=== PATIENT | female | born 1970 | race Caucasian/White ===

== ENCOUNTER 2020-06-16 18:35 | Emergency (ER) | payer OTHER ==
[2020-06-16] MEDS ORDERED: DIPHENHYDRAMINE HCL 50 MG/ML VIAL IV ONE (18:54)
[2020-06-16] MEDS ORDERED: NORMAL SALINE 1000 ML 1,000 ML IV ONE (18:54)
[2020-06-16] MEDS ORDERED: FAMOTIDINE INJ/PF 20 MG/2 ML SDV IV ONE (18:54)
[2020-06-16] MEDS ORDERED: METHYLPREDNISOLONE INJ 125 MG/2 ML SDV IV ONE (18:54)
--- NOTE | 2020-06-16 18:56 | ER Document Report ---
ED Medical Screen (RME) - General Chief Complaint: Chest Pain Stated Complaint: INSECT BITE Time Seen by Provider: 06/16/20 18:49 Primary Care Provider: MAYA AGARWAL MD [Primary Care Provider] - Follow up as needed Information source: Patient Notes: Patient states she was bit by an insect around 130 this afternoon. Patient complains of redness and swelling to this area. Patient states that she started to develop difficulty swallowing and chest tightness. Patient is uncertain if this may be anxiety or due to her allergic reaction. I have greeted and performed a rapid initial assessment of this patient. A comprehensive ED assessment and evaluation of the patient, analysis of test results and completion of the medical decision making process will be conducted by additional ED providers. - Related Data Allergies/Adverse Reactions: No Known Allergies Allergy (Verified 06/16/20 18:54) Past Medical History - Social History Frequency of alcohol use: Occasional Drug Abuse: None Physical Exam - Vital signs Vitals: Temp Pulse Resp BP Pulse Ox 99.2 F 116 H 20 157/87 H 95 06/16/20 18:38 06/16/20 18:38 06/16/20 18:38 06/16/20 18:38 06/16/20 18:38 - General General appearance: Alert, Anxious Notes: Patient able to manage oral secretions, no angioedema - Cardiovascular Rhythm: Tachycardia Heart sounds: S1 appreciated, S2 appreciated Course - Re-evaluation Re-evalutation: 06/16/20 18:55 Charge nurse advised of patient status and need for room - Vital Signs Vital signs: Temp Pulse Resp BP Pulse Ox 99.2 F 116 H 20 157/87 H 95 06/16/20 18:38 06/16/20 18:38 06/16/20 18:38 06/16/20 18:38 06/16/20 18:38 Doctor's Discharge - Discharge Referrals: MAYA AGARWAL MD [Primary Care Provider] - Follow up as needed
[2020-06-16] MEDS ORDERED: HYDROMORPHONE HCL INJ/PF 2 MG/ML AMPULE IV ONE (19:00)
[2020-06-16] MEDS ORDERED: EPINEPHRINE INJ/PF 1 MG/1 ML AMPULE ONE (19:04)
[2020-06-16] MEDS ORDERED: EPINEPHRINE INJ/PF 1 MG/1 ML AMPULE SUBCUT ONE (19:04)
--- NOTE | 2020-06-16 19:12 | ER Document Report ---
ED Skin Rash/Insect Bite/Abscs - General Chief Complaint: Chest Pain Stated Complaint: INSECT BITE Time Seen by Provider: 06/16/20 18:49 Primary Care Provider: KAYLYN DUKE DO [NO LOCAL MD] - Follow up as needed Mode of Arrival: Ambulatory Information source: Patient, [facility] Records Notes: This 49-year-old female patient comes emergency room complaining of acute allergic reaction. She reports getting bitten or stung on her left knee about 1:30 PM. Area has turned red and swollen. About 2 PM she began developing hives all over her body. She has diffuse itching. She states that seems to be improving somewhat, but now she feels a lump in her throat, with some burning discomfort on swallowing that extends into her substernal chest region. She does notice that turning her head left and right tends to exacerbate the discomfort she feels in her anterior neck and throat region. - Related Data Allergies/Adverse Reactions: No Known Allergies Allergy (Verified 06/16/20 18:54) Past Medical History - General Information source: Patient, [facility] Records - Social History Smoking Status: Never Smoker Cigarette use (# per day): No Chew tobacco use (# tins/day): No Smoking Education Provided: No Frequency of alcohol use: Occasional Drug Abuse: None Lives with: Family Family History: Reviewed & Not Pertinent - Medical History Medical History: Negative Past Surgical History: Reports: Hx Section - X2, Other - Lipoma removed from the left scapular region in 2019. Review of Systems - Review of Systems Constitutional: No symptoms reported EENT: No symptoms reported Cardiovascular: No symptoms reported Respiratory: No symptoms reported Gastrointestinal: No symptoms reported Genitourinary: No symptoms reported Female Genitourinary: No symptoms reported Musculoskeletal: No symptoms reported Skin: No symptoms reported Hematologic/Lymphatic: No symptoms reported Neurological/Psychological: No symptoms reported Physical Exam - Vital signs Vitals: Temp Pulse Resp BP Pulse Ox 99.2 F 116 H 20 157/87 H 95 06/16/20 18:38 06/16/20 18:38 06/16/20 18:38 06/16/20 18:38 06/16/20 18:38 - General General appearance: Alert, Anxious In distress: Mild - HEENT Head: Normocephalic, Atraumatic Eyes: Normal Pupils: PERRL Pharynx: Normal. No: Uvular edema Neck: Normal - Respiratory Respiratory status: No respiratory distress Breath sounds: Normal - Cardiovascular Rhythm: Regular Heart sounds: Normal auscultation Murmur: No - Abdominal Inspection: Normal Tenderness: Nontender - Back Back: Normal - Extremities General upper extremity: Normal inspection General lower extremity: Other - Left anterior knee over the patellar region is red, swollen and tender. Patient reports the area does itch. - Neurological Neuro grossly intact: Yes - Psychological Associated symptoms: Normal affect, Normal mood - Skin Skin Temperature: Warm Skin Moisture: Dry Skin Color: Normal Character of irregularity: Urticarial - Faint urticarial erythema noted in the anterior neck and upper chest region. Course - Re-evaluation Re-evalutation: 06/16/20 20:10 At this time the itching has improved. The left prepatellar knee redness and swelling is a little improved, but remains and is tender to palpate. The patient reports that the burning sensation in her throat continues unchanged. We will try GI cocktail to see if this may have been due to a's episode of reflux. 06/16/20 20:58 GI cocktail did not seem to make much difference in the anterior throat/neck region discomfort. There does seem to be some tenderness to palpate the area. There is no swelling, no erythema. - Vital Signs Vital signs: Temp Pulse Resp BP Pulse Ox 99.2 F 116 H 20 157/87 H 99 06/16/20 18:38 06/16/20 18:38 06/16/20 18:38 06/16/20 18:38 06/16/20 19:52 - Laboratory Result Diagrams: 06/16/20 19:25 06/16/20 19:25 Laboratory results interpreted by me: 06/16/20 06/16/20 19:25 19:25 WBC 18.5 H Absolute Neuts (auto) 13.9 H Glucose 119 H - EKG Interpretation by Nm EKG shows normal: Sinus rhythm, Leeper, Intervals, QRS Complexes. abnormal: ST-T Waves - Borderline anterolateral T abnormalities Rate: Normal - 97 Rhythm: NSR Discharge - Discharge Clinical Impression: Urticaria, Anterior neck pain Insect bite Qualifiers: Encounter type: initial encounter Site of insect bite: knee Laterality: left Qualified Code(s): S80.262A - Insect bite (nonvenomous), left knee, initial encounter Acute allergic reaction Qualifiers: Encounter type: initial encounter Qualified Code(s): T78.40XA - Allergy, u nspecified, initial encounter Condition: Stable Disposition: HOME, SELF-CARE Additional Instructions: Acute Allergic Reaction Your symptoms are due to an allergic reaction. Allergy can cause hives, swelling of the hands, feet, and face, hoarseness, and difficulty swallowing or breathing. It may be due to exposure to medication, animal dander, foods, infection, or insect bites. Medication is a common cause, even when prior use of this same medication caused no problems. Acute treatment may include adrenalin and antihistamines. Usually, the specific allergic agent can't be identified unless repeated episodes occur. Home treatment includes the following: (1) Stop any suspicious medications. This will be discussed with you. (2) Oral antihistamines for the next four to five days. Example, diphenhydramine (Benadryl) every four hours if Tagamet or Pepcid is not controlling your itching and hives. (3) You may also use cimetidine (Tagamet), or famotidine (Pepcid) every four hours. (4) Avoid aspirin until the hives completely disappear. (5) Avoid hot baths or showers until the hives are completely gone. Call the doctor if faintness, difficulty swallowing, tightness in the chest, or wheezing occurs. Take the cephalexin antibiotic as prescribed. Take Pepcid every 4-6 hours for the next day, or until the hives and itching stopped. Elevate your left leg and limit walking until the knee improves. Follow-up with your primary care provider if not improving. RETURN TO THE EMERGENCY ROOM IF ANY NEW OR WORSENING SYMPTOMS. Prescriptions: Cephalexin [Cephalexin 500 MG Tablet] 500 mg PO QID #20 tablet Referrals: LEILANI,KAYLYN A, DO [NO LOCAL MD] - Follow up as needed
[2020-06-16] MEDS ORDERED: ONDANSETRON HCL INJ/PF 4 MG/2 ML SDV ONE (19:14)
[2020-06-16] MEDS ORDERED: ONDANSETRON HCL INJ/PF 4 MG/2 ML SDV IV ONE (19:18)
[2020-06-16 19:36] LABS: ABSOLUTE BASOPHILS # (AUTO) 0.1 10^3/uL (0.0-0.2); ABSOLUTE EOSINOPHILS # (AUTO) 0.1 10^3/uL (0.0-0.6); ABSOLUTE LYMPHOCYTES (AUTO) 3.1 10^3/uL (0.5-4.7); ABSOLUTE MONOCYTES (AUTO) 1.4 10^3/uL (0.1-1.4); ABSOLUTE NEUT (AUTO) 13.9 10^3/uL (1.7-8.2); BASOPHILS % (AUTO) 0.4 % (0-2); EOSINOPHILS % (AUTO) 0.4 % (0-6); HEMATOCRIT 42.9 % (36.0-47.0); HEMOGLOBIN 15.1 g/dL (12.0-15.5); LYMPHOCYTES % (AUTO) 16.9 % (13-45); MEAN CORPUSCULAR HEMOGLOBIN 30.6 pg (27.0-33.4); MEAN CORPUSCULAR HGB CONC 35.2 g/dL (32.0-36.0); MEAN CORPUSCULAR VOLUME 87 fl (80-97); MONOCYTES % (AUTO) 7.3 % (3-13); PLATELET COUNT 343 10^3/uL (150-450); RED BLOOD COUNT 4.94 10^6/uL (3.72-5.28); TOTAL CELLS COUNTED % (AUTO) 100 %; WHITE BLOOD COUNT 18.5 10^3/uL (4.0-10.5)
[2020-06-16 19:53] LABS: ALBUMIN 4.5 g/dL (3.5-5.0); ALKALINE PHOSPHATASE 52 U/L (38-126); ANION GAP 12 (5-19); ASPARTATE AMINO TRANSFERASE 23 U/L (14-36); BILIRUBIN,DIRECT 0.2 mg/dL (0.0-0.4); BILIRUBIN,TOTAL 0.6 mg/dL (0.2-1.3); BLOOD UREA NITROGEN 15 mg/dL (7-20); CALCIUM 9.7 mg/dL (8.4-10.2); CARBON DIOXIDE 24 mmol/L (22-30); CHLORIDE 104 mmol/L (98-107); GLUCOSE 119 mg/dL (75-110); POTASSIUM 4.3 mmol/L (3.6-5.0); TOTAL PROTEIN 7.3 g/dL (6.3-8.2)
--- NOTE | 2020-06-16 20:02 | RADIOLOGY REPORT (SQ) ---
EXAM DESCRIPTION: CHEST SINGLE VIEW IMAGES COMPLETED DATE/TIME: 06/16/2020 7:52 pm REASON FOR STUDY: cp COMPARISON: None. EXAM PARAMETERS: NUMBER OF VIEWS: One view. TECHNIQUE: Single frontal radiographic view of the chest acquired. RADIATION DOSE: NA LIMITATIONS: None. FINDINGS: LUNGS AND PLEURA: No opacities, masses or pneumothorax. No pleural effusion. MEDIASTINUM AND HILAR STRUCTURES: No masses. Contour normal. HEART AND VASCULAR STRUCTURES: Heart normal in size. Normal vasculature. BONES: No acute findings. HARDWARE: None in the chest. OTHER: No other significant finding. IMPRESSION: NO ACUTE RADIOGRAPHIC FINDING IN THE CHEST. TECHNICAL DOCUMENTATION: JOB ID: [id number] 2010 [employer]- All Rights Reserved Reading location - IP/workstation name: [email or web address]
[2020-06-16] MEDS ORDERED: MAG HYDROX/AL HYDROX/SIMETH SUSP 30 ML UDCUP PO ONE (20:08)
[2020-06-16] MEDS ORDERED: LIDOCAINE 2% VISCOUS SOLN 15 ML UDCUP PO ONE (20:08)
[2020-06-16] MEDS ORDERED: CEPHALEXIN 500 MG CAPSULE PO ONE (20:11)
[2020-06-16 21:39] VITALS: BP 132/84
--- NOTE | 2020-06-17 02:51 | EKG REPORT ---
SEVERITY:- BORDERLINE ECG - SINUS RHYTHM BORDERLINE T ABNORMALITIES, ANT-LAT LEADS : Confirmed by: Russel Ayala MD 17-Jun-2020 02:50:28
== END 2020-06-16 21:41 | disposition home or self-care (01) ==
LOC: ER 18:35
DX: S80.262A Insect bite (nonvenomous), left knee, initial encounter (principal); L50.0 Allergic urticaria; R09.89 Other specified symptoms and signs involving the circulatory and respiratory systems; M54.2 Cervicalgia; W57.XXXA Bitten or stung by nonvenomous insect and other nonvenomous arthropods, initial encounter
CPT/HCPCS: 93005; 99285; 96372; 96361; 96374; 96375; 36415; 85025; 80053; 84484; 71045; 93010; J1200; J0171; J3490; J2930; J2405; J7030; S0028